=== PATIENT | male | born 1980 ===

== ENCOUNTER 2019-10-01 10:49 | Day surgery (SDC) | payer OTHER ==
[~2019-10-01 10:49] MED LIST: Buffered Lidocaine 1% SYRIN* 1 ML/SYRINGE INTRADERM ONE; CEFAZOLIN IVPB ONE; Dexamethasone TAB* 4 MG PO ONE; DiMENhydriNATE IV* 50 MG/ML VIAL IV PUSH PRN; Famotidine IV* 10 MG/ML 2 ML (20 mg) IV ONE; HYDROmorphone INJ1* 1 MG/ML SYRINGE IV PRN; Lactated Ringers 1000 ML Bag* 1,000 ML IV SCH; NS IVPB ONE; Naloxone* 0.4 MG/ML 1 ML VIAL IV PRN; Ondansetron ODT TAB* 4 MG PO ONE; PROCHLORPERAZINE INJ 5 MG/ML 2 ML VIAL IV PRN; oxyCODONE TAB* 5 MG TAB PO PRN
[2019-10-01] MEDS ORDERED: Midazolam* 1 MG/ML 5 ML VIAL (5 MG) ONE (10:56)
[2019-10-01] MEDS ORDERED: KETAMINE HCL* 50 MG/ML 10 ML VIAL ONE (10:56)
[2019-10-01] MEDS ORDERED: fentaNYL* 50 MCG/ML 2 ML VIAL (100 MCG VIAL) ONE ×2 (10:56→14:51)
[2019-10-01] MEDS ORDERED: Ondansetron ODT TAB* 4 MG ONE (11:37)
[2019-10-01] MEDS ORDERED: ceFAZolin 2 GM PREMIX in ORs 2 GM/50 ML BAG ONE (11:37)
[2019-10-01] MEDS ORDERED: Famotidine IV* 10 MG/ML 2 ML (20 mg) ONE (11:37)
[2019-10-01] MEDS ORDERED: Dexamethasone TAB* 4 MG ONE (11:37)
[2019-10-01] MEDS ORDERED: Bupivacaine 0.25% SDV* 30 ML ONE (12:16)
[2019-10-01] MEDS ORDERED: Acetaminophen IV 1GM/100ML * 100 ML ONE (13:04)
[2019-10-01] MEDS ORDERED: HYDROmorphone INJ1* 1 MG/ML SYRINGE ONE (13:26)
[2019-10-01] MEDS ORDERED: Propofol* 10 MG/ML 20 ML BTL ONE (14:14)
[2019-10-01] MEDS ORDERED: Lidocaine 2% PF * 5 ML VIAL ONE (14:14)
[2019-10-01] MEDS ORDERED: Ketorolac INJ* 30 MG/ML 1 ML VIAL ONE (14:14)
[2019-10-01] MEDS: fentaNYL* 50 MCG/ML 2 ML VIAL (100 MCG VIAL) IV PRN ×3 (14:52→15:19)
[2019-10-01 16:16] VITALS: BP 153/104
--- NOTE | 2019-10-02 03:28 | OP ---
DATE OF OPERATION: 10/01/19 [facility] DATE OF : 80 SURGEON: Fred Alvarado MD TREE MARKER: TAWNY Price. An blood bank assistant was needed for the procedure to aid in positioning of the arm and retraction. ANESTHESIOLOGIST: Dr. Amin. ANESTHESIA: General. PRE-OP DIAGNOSIS: Left intraarticular displaced distal radius fracture. POST-OP DIAGNOSIS: Left intraarticular displaced distal radius fracture. OPERATIVE PROCEDURE: Open reduction and internal fixation of left wrist intraarticular distal radius fracture of the volar Grubbs's type. INDICATIONS: Mr. Orona had the fracture. They had attempted to close, but on followup imaging, they were concerned about anterior subluxation through the fracture. He was then referred over to me. We did talk about treatment options. I told him I was concerned somewhat for posttraumatic arthrosis. He wished to proceed with surgery. FINDINGS: See above and below. ESTIMATED BLOOD LOSS: 2 mL. COMPLICATIONS: None. DESCRIPTION OF PROCEDURE: Mr. Orona was seen in the preoperative holding area. The correct site, side, and procedure were identified. We came back to the operating room. The arm was prepped and draped in the usual fashion and time- out was performed. The arm was exsanguinated with the Esmarch and the tourniquet was inflated. I made a longitudinal incision over the distal FCR tendon. Dissection was carried down. The sheath was opened. The tendon was retracted ulnarly. The sub -sheath was opened. I utilized the interval between the FPL tendon and the radial artery to drop down on to the pronator quadratus. This was incised along the radial aspect and T'd back transversely preserving the volar capsular ligaments. The soft callus was taken down, the fracture fragment was mobilized and cleaned. I then reduced the fracture and clamped it into place with the pointed reduction clamp. I checked the reduction on mini C-arm fluoroscopy and it looked good to me. I brought out my Synthes distal radius variable angle plate and pinned into place. I then secured the plate in the oblong hole proximally with a 2.4 mm cortical screw. To make sure, I fully closed down the anterior fragment, I went ahead and placed my first distal screw as a cortical screw and this generated excellent compression. I then filled the remainder of the holes distally with the locking screws taking care to shoot several screws into the radial styloid fragment. This was a variant edge buttress plate and remainder of the 2 proximal screws were filled with cortical screws. The wound was irrigated out. The pronator was repaired with 3-0 Vicryl suture. The skin was closed with 4-0 Monocryl and Steri-Strips. A 0.25% Marcaine was infiltrated all about the area. The final fluoroscopic imaging showed very nice alignment and good positioning of the hardware. The well-padded short-arm plaster splint was applied and he was taken to the recovery room in stable condition. [id number]/[facility] #: [id number] [facility] SYSTEMDaria
== END 2019-10-01 16:22 | disposition home or self-care (01) ==
LOC: OR 10:49
PROVIDERS: ATTEND Orthopaedic Surgery Hand Surgery
DX: S52.572A Other intraarticular fracture of lower end of left radius, initial encounter for closed fracture (principal); W19.XXXA Unspecified fall, initial encounter; Y93.69 Activity, other involving other sports and athletics played as a team or group; Y92.312 Tennis court as the place of occurrence of the external cause
CPT/HCPCS: 76000; A9270-GY; C1713; C1776; J0690; J1170; J1885; J2250; J2704; J3010; J3490; J8540